=== PATIENT | female | born 1965 | race Caucasian/White ===

== ENCOUNTER 2020-08-27 15:46 | Emergency (ER) | payer OTHER ==
[~2020-08-27 15:46] MED LIST: ASPIRIN EC81 MG PO; BENTYL 10MG CAP10 MG PO; CIPRO500 MG PO; COLACE 100MG C100 MG PO; CYMBALTA 30 MG30 MG PO; ELAVIL 10 MG TA10 MG PO; FLAGYL500 MG PO; KEFLEX500 MG PO; LEVAQUIN500 MG PO; NORCO 5-325 TA1 EACH PO; OS-CAL 500+D31 EACH PO; PERCOCET 5/325 T1 EA PO; PHENERGAN 12.12.5 M1 PO; RIZATRIPTAN5 MG PO; TESSALON PERLE100 MG PO; TIZANIDINE HCL2 M1 PO; VANCOCIN 125MG/2.5ML PO; VANCOMYCIN HCL125 MG PO; ZOFRAN ODT 4 MG4 MG SL; ZOFRAN4 MG PO
[2020-08-27 18:50] LABS: HEMOGLOBIN 15.7 gm/dl (12.3-15.3); RED BLOOD COUNT 5.07 M/UL (4.00-5.10); WHITE BLOOD COUNT 11.7 K/UL (4.5-11.0)
[2020-08-27 19:16] LABS: BUN/CREATININE RATIO 12 (0-10)
[2020-08-27] MEDS ORDERED: TESSALON PERLE100 MG PO (20:24)
[2020-08-27] MEDS ORDERED: VENTOLIN HFA 66.7 GM INH (20:24)
[2020-08-27] MEDS ORDERED: PREDNISONE 20 M20 MG PO (20:24)
== END 2020-08-27 21:23 | disposition home or self-care (01) ==
LOC: ER1 15:46
PROVIDERS: Emergency Medicine
DX: J06.9 Acute upper respiratory infection, unspecified (principal); Z20.822 Contact with and (suspected) exposure to COVID-19; F17.210 Nicotine dependence, cigarettes, uncomplicated
CPT/HCPCS: 0240U; 71045; 80053; 82550; 82553; 83874; 83880; 84484; 85025; 94664; 99283

== ENCOUNTER 2020-09-11 03:14 | Emergency (ER) | payer OTHER ==
[~2020-09-11 03:14] MED LIST changes: +PREDNISONE 20 M20 MG PO; +VENTOLIN HFA 66.7 GM INH
[2020-09-11] MEDS ORDERED: CEPHALEXIN500 MG PO (09:00)
== END 2020-09-11 09:55 | disposition home or self-care (01) ==
LOC: ER1 03:14
DX: S61.412A Laceration without foreign body of left hand, initial encounter (principal); Z23 Encounter for immunization; F17.200 Nicotine dependence, unspecified, uncomplicated; W26.8XXA Contact with other sharp object(s), not elsewhere classified, initial encounter
CPT/HCPCS: 12032; 73130; 90471; 99283

== ENCOUNTER 2021-02-07 12:16 | Inpatient (IN) | payer OTHER ==
[~2021-02-07] VITALS: Ht 160 cm; Wt 61.2 kg
[~2021-02-07 12:16] MED LIST changes: +CEPHALEXIN500 MG PO
[2021-02-07 13:35] LABS: RED BLOOD COUNT 4.9 M/UL (4.00-5.10); WHITE BLOOD COUNT 15.3 K/UL (4.5-11.0)
[2021-02-07 13:46] LABS: BUN/CREATININE RATIO 19 (0-10)
[2021-02-08 02:49] LABS: HEMOGLOBIN 14.5 gm/dl (12.3-15.3); RED BLOOD COUNT 4.64 M/UL (4.00-5.10); WHITE BLOOD COUNT 12.1 K/UL (4.5-11.0)
[2021-02-08 03:27] LABS: BUN/CREATININE RATIO 16 (0-10)
[2021-02-08 11:52] LABS: BORDETELLA PARAPERTUSSIS Not Detected (Not Detectd); BORDETELLA PERTUSSIS Not Detected (Not Detectd); CHLAMYDIA PNEUMONIAE Not Detected (Not Detectd); CORONAVIRUS HKU1 Not Detected (Not Detectd); CORONAVIRUS NL63 Not Detected (Not Detectd); CORONOAVIRUS 229E Not Detected (Not Detectd); HUMAN METAPNEUMOVIRUS Not Detected (Not Detectd); HUMAN RHINOVIRUS/ENTEROVIRUS Not Detected (Not Detectd); INFLUENZA A Not Detected (Not Detectd); INFLUENZA B Not Detected (Not Detectd); MYCOPLASMA PNEUMONIAE Not Detected (Not Detectd); PARAINFLUENZA VIRUS 1 Not Detected (Not Detectd); PARAINFLUENZA VIRUS 2 Not Detected (Not Detectd); PARAINFLUENZA VIRUS 3 Not Detected (Not Detectd); PARAINFLUENZA VIRUS 4 Not Detected (Not Detectd); RESPIRATORY SYNCYTIAL VIRUS Not Detected (Not Detectd)
[2021-02-08 11:58] LABS: ADENOVIRUS F 40/41 Not Detected (Negative); ASTROVIRUS Not Detected (Negative); CAMPYLOBACTER Not Detected (Negative); E.COLI 0157 Not Detected (Negative); ENTAMOEBA HISTOLYTICA Not Detected (Negative); ENTEROAGGREGATIVE E.COLI (EAEC Not Detected (Negative); ENTEROPATHOGENIC E.COLI (EPEC) Not Detected (Negative); ENTEROTOXIGENIC E.COLI (ETEC) Not Detected (Negative); GIARDIA LAMBLIA Not Detected (Negative); NOROVIRUS GI/GII Not Detected (Negative); PLESIOMONAS SHIGELLOIDES Not Detected (Negative); ROTOVIRUS A Not Detected (Negative); SALMONELLA Not Detected (Negative); SAPOVIRUS Not Detected (Negative); SHIG/ENTEROINVAS.ECOLI (EIEC) Not Detected (Negative); SHIGA-LIK TOX.PRO.E.COLI (STEC Not Detected (Negative); VIBRIO Not Detected (Negative); VIBRIO CHOLERAE Not Detected (Negative); YERSINIA ENTEROCOLITICA Not Detected (Negative)
[2021-02-08 14:21] LABS: CORONAVIRUS OC43 DETECTED (Not Detectd); SARS-CoV-2 NOT DETECTED (Not Detectd)
[2021-02-09 04:03] LABS: HEMOGLOBIN 14.1 gm/dl (12.3-15.3); RED BLOOD COUNT 4.56 M/UL (4.00-5.10)
[2021-02-09 04:53] LABS: BUN/CREATININE RATIO 16 (0-10)
[2021-02-09 07:47] LABS: CRYPTOSPORIDIUM DETECTED (Negative)
[2021-02-09 07:49] LABS: CLOSTRIDIUM DIFFICILE TOX A/B DETECTED (Negative)
[2021-02-10 06:49] LABS: HEMOGLOBIN 13.6 gm/dl (12.3-15.3); RED BLOOD COUNT 4.47 M/UL (4.00-5.10); WHITE BLOOD COUNT 13.7 K/UL (4.5-11.0)
[2021-02-10 07:15] LABS: BUN/CREATININE RATIO 14 (0-10)
[2021-02-10] MEDS ORDERED: OMNICEF 300 MG300 MG PO (09:07)
[2021-02-10] MEDS ORDERED: VANCOMYCIN HCL125 MG PO (09:07)
[2021-02-10] MEDS ORDERED: HUMIBID LA TAB600 MG PO ×2 (10:31→11:01)
[2021-02-10] MEDS ORDERED: FAMOTIDINE20 MG PO (10:31)
[2021-02-10] MEDS ORDERED: ASPIRIN EC81 MG PO (10:31)
[2021-02-10] MEDS ORDERED: ZOFRAN 4 MG TAB4 MG PO (10:31)
[2021-02-10] MEDS ORDERED: IPRAT-ALBUT 0.5-3 ML INH (10:58)
[2021-02-10 13:10] LABS: FINAL INTERPRETATION Negative (.); HIV 1 AB Negative (Negative); HIV 2 AB Negative (Negative)
== END 2021-02-10 12:06 | disposition home or self-care (01) | DRG 372 ==
LOC: ER1 12:16 → CDU 18:09 → M/S 18:09 → CDU 18:09 → M/S 20:26
PROVIDERS: Physician Assistant; Physician Assistant Medical; Student in an Organized Health Care Education/Training Program; ADMIT Internal Medicine
DX: A04.72 Enterocolitis due to Clostridium difficile, not specified as recurrent (principal); N30.00 Acute cystitis without hematuria; R65.10 Systemic inflammatory response syndrome (SIRS) of non-infectious origin without acute organ dysfunction; Z20.822 Contact with and (suspected) exposure to COVID-19; A07.2 Cryptosporidiosis; F41.9 Anxiety disorder, unspecified; B96.1 Klebsiella pneumoniae [K. pneumoniae] as the cause of diseases classified elsewhere; R73.9 Hyperglycemia, unspecified; F17.210 Nicotine dependence, cigarettes, uncomplicated; E87.6 Hypokalemia; B34.2 Coronavirus infection, unspecified; J20.8 Acute bronchitis due to other specified organisms; R03.0 Elevated blood-pressure reading, without diagnosis of hypertension; F32.9 Major depressive disorder, single episode, unspecified; Z96.611 Presence of right artificial shoulder joint; G89.4 Chronic pain syndrome; Z90.49 Acquired absence of other specified parts of digestive tract; Z98.51 Tubal ligation status; Z82.49 Family history of ischemic heart disease and other diseases of the circulatory system; Z83.3 Family history of diabetes mellitus; Z83.438 Family history of other disorder of lipoprotein metabolism and other lipidemia
CPT/HCPCS: ECHO; 36415; 71045; 80048; 80053; 81001; 82550; 82553; 83605; 83690; 83735; 83874; 84484; 85025; 85027; 86701; 86702; 87040; 87077; 87081; 87086; 87186; 87324; 87449; 87507; 87633; 87880; 93005; 93306; 94640; 94760; 96374; 96375; 96376; 99285; J0696; J1335; J1650; J2270; J2405; J2930; J7030; Q9967; U0002

== ENCOUNTER 2021-03-12 03:23 | Emergency (ER) | payer OTHER ==
[~2021-03-12 03:23] MED LIST changes: +FAMOTIDINE20 MG PO; +HUMIBID LA TAB600 MG PO; +IPRAT-ALBUT 0.5-3 ML INH; +OMNICEF 300 MG300 MG PO; +ZOFRAN 4 MG TAB4 MG PO
[2021-03-12 04:05] LABS: HEMOGLOBIN 14.2 gm/dl (12.3-15.3); RED BLOOD COUNT 4.6 M/UL (4.00-5.10); WHITE BLOOD COUNT 10.1 K/UL (4.5-11.0)
[2021-03-12 04:17] LABS: BUN/CREATININE RATIO 14 (0-10)
[2021-03-12] MEDS ORDERED: PROTONIX40 MG PO (06:02)
== END 2021-03-12 06:45 | disposition home or self-care (01) ==
LOC: ER1 03:23
PROVIDERS: Family Medicine
DX: R10.13 Epigastric pain (principal); R55 Syncope and collapse; F17.210 Nicotine dependence, cigarettes, uncomplicated
CPT/HCPCS: 71045; 80053; 82550; 82553; 83874; 84484; 85025; 85379; 93005; 96374; 96375; 99285; C9113; J2270; Q9967